=== PATIENT | male | born 2000 | race Two or more races ===

== ENCOUNTER 2024-07-12 10:37 | Emergency (ER) | payer MEDICAID, SELFPAY ==
[2024-07-12 10:54] VITALS: BP 113/79; PULSE 95; RESP 20; TEMP 37; O2SAT 95; BMI 23.5
--- NOTE | 2024-07-12 10:56 | EDNOTE_ITS ---
<Statement entered by Shameka Rm MD - 07/19/24 14:46> As co-signing physician, I was present and available for consult prn. I concur with the plan and care as documented by the midlevel provider. Upper Respiratory Inf. RME/HPI General Chief Complaint: Flu Like Symptoms Stated Complaint: SOB WITH COUGH Time Seen by Provider: 07/12/24 10:58 Source: patient Arrival date/time: 07/12/24 10:37 24-year-old male with no known medical history presents to the emergency room with a chief complaint of shortness of breath and cough x 3 days Mode of arrival: ambulatory Limitations: no limitations Related Data Previous Rx's ?Medication ?Instructions ?Recorded diphenhydramine HCl 25 mg capsule 25 mg PO Q8H PRN allergic symptoms 09/21/23 (Benadryl) #30 caps ibuprofen 600 mg tablet 600 mg PO Q6H #30 tabs 09/21/23 Allergies Allergy/AdvReac Type Severity Reaction Status Date / Time NKA* Allergy Uncoded 07/12/24 10:40 Review of Systems Review of Systems Systems Reviewed: All systems reviewed, normal except as documented Constitutional Constitutional: Reports system reviewed and no additional complaints, except as documented, Denies fatigue, Denies fever(s), Denies headache(s) and Denies weakness Eyes Eyes: Reports system reviewed and no additional complaints, except as documented, Denies blurry vision and Denies change in vision ENT Ears, Nose, Mouth, and Throat: Reports system reviewed and no additional complaints, except as documented, Denies otalgia, Denies headache(s), Denies nasal congestion, Denies throat swelling and Denies vertigo Cardiovascular Cardiovascular: Reports system reviewed and no additional complaints, except as documented, Denies chest pain, Reports dyspnea and Denies dyspnea on exertion Respiratory Respiratory: Reports system reviewed and no additional complaints, except as documented, Denies chest congestion, Reports cough, Reports dyspnea, Denies dyspnea on exertion and Reports wheezing Gastrointestinal Gastrointestinal: Reports system reviewed and no additional complaints, except as documented, Denies abdominal pain, Denies cramping, Denies nausea and Denies vomiting Genitourinary Genitourinary: Reports system reviewed and no additional complaints, except as documented, Denies dysuria and Denies hematuria Musculoskeletal Musculoskeletal: Reports system reviewed and no additional complaints, except as documented and Denies back pain Integumentary/Breasts Skin/Breast: Reports system reviewed and no additional complaints, except as documented and Denies wounds Neurologic Neurologic: Reports system reviewed and no additional complaints, except as documented, Denies confusion, Denies headache(s), Denies lack of coordination, Denies vertigo and Denies weakness Psychiatric Psychiatric: Reports system reviewed and no additional complaints, except as documented, Denies anxiety, Denies confusion, Denies depression, Denies paranoia, Denies suicidal ideation and Denies tactile hallucinations Endocrine Endocrine: Reports system reviewed and no additional complaints, except as documented and Denies fatigue Hematologic/Lymphatic Hematologic/Lymphatic: Reports system reviewed and no additional complaints, except as documented and Denies lymphadenopathy Allergic/Immunologic Allergic/Immunologic: Reports system reviewed and no additional complaints, except as documented, Denies throat swelling, Denies urticaria and Reports wheezing ED Exam General Limitations: Present no limitations Course Quality Measures none Orders Category Date Time Status XR chest 2V Stat Exams 07/12/24 10:56 Completed Albuterol/Ipratr Rt Stephy [Duoneb Rt Stephy] Med 07/12/24 10:56 Discontinued 3 ml INH X1 ONE Vital Signs Vital signs: Vital Signs Temperature 98.6 F 07/12/24 10:54 Pulse Rate 95 07/12/24 10:54 Respiratory Rate 20 07/12/24 10:54 Blood Pressure 113/79 07/12/24 10:54 Pulse Oximetry (%) 95 07/12/24 10:54 Oxygen Delivery Method Room Air 07/12/24 10:54 O2 saturation 95% within normal limits Upper Respiratory Infection MDM Narrative MDM Narrative:: 24-year-old male with no known medical history presents to the emergency room with a chief complaint of shortness of breath and cough x 3 days clinically the patient appears nontoxic and in no apparent distress. Physical examination shows mild wheezing to the lower lobes. Breathing treatment was completed and the patient states he is having significant improvement during reevaluation. Patient's x-ray is negative for pneumonia COVID and flu were both negative. Patient was discharged and educated to follow-up with primary care provider and return to the emergency room for any evidence of worsening signs or symptoms Patient data External records reviewed:: [facility] previous records Clinical information provided by:: patient Social determinants that could affect healthcare access:: none Patient has the following chronic illnesses:: Asthma How is presenting disease/condition affected by chronic disease/condition?: exacerbated by Evaluation data The following diagnostics were reviewed and interpreted by me:: lab results and radiology exam(s) Lab and/or radiology exams considered but not ordered:: Labs and radiology exams considered but not ordered Interpretation Summary: Chest x-ray-no acute pneumonic infiltrates Medications / Prescriptions Medications or Prescriptions considered but not ordered:: Meds given Medication administrations:: Medication Administration History Discontinued Medications Albuterol/Ipratropium (Albuterol/Ipratropium (Duoneb) Rt Stephy 3 Ml Nebu) 3 ml INH X1 ONE Stop: 07/12/24 10:57 Last Admin: 07/12/24 11:11 Dose: 3 ml Documented By: ZAN Meds given Consultations Consultation(s) initiated? (list below): No Diagnosis Upper Respiratory Differential Diagnosis: upper respiratory infection, viral infection, bronchitis and influenza Most likely diagnosis given after review of the tests above:: Upper respiratory infection Admission Indicated Admission indicated?: not indicated Admission Request Was there a request for admission?: No Disposition Plan Disposition Plan: Discharge Discharge Attestation Discharge Attestation: The patient and all family members were given an opportunity to ask questions and understood the discharge instructions. Discharge instructions specifically effects, indications for sooner follow up or return to the emergency department, and the expected course of current diagnosis. Patient condition: Stable Discharge Plan Plan Patient Disposition: HOME (Self Care) Disposition Comment: Stable Prescriptions/Referrals Prescriptions/Med Rec: No Action diphenhydramine HCl [Benadryl] 25 mg capsule 25 mg PO Q8H PRN (Reason: allergic symptoms) Qty: 30 0RF ibuprofen 600 mg tablet 600 mg PO Q6H Qty: 30 0RF Referrals: Chago Tapia MD [Primary Care Provider] - In 1 week Problem List Clinical Impression: Upper respiratory infection Patient/Caregiver Discharge Instructions Education Materials: ED URI, Viral, No Abx (Adult) Additional Instructions: Please follow-up with your primary care provider in the next 24 to 40 hours. For any evidence of worsening signs or symptoms please return to the emergency room immediately Print Language: Finnish Stand Alone Forms: Chelita Award Info., Patient Portal Info Letter PA/MAR Supervising Physician PA/MAR Supervising Physician: Dr. RM
--- NOTE | 2024-07-12 10:56 | XR_ITS ---
Examination: PA lateral chest 2 views TECHNIQUE: Upright PA lateral chest 2 views Exam date and time: July 12, 2024 1058 hours Comparison February 22, 2015 INDICATIONS: Shortness of breath wheezing beginning 5 days ago. FINDINGS: Minor accentuation of the perihilar markings No lobar pneumonia Normal heart size No pulmonary edema IMPRESSION: Mild bilateral perihilar inflammatory disease pattern
[2024-07-12 11:11] VITALS: PULSE 101; RESP 18; O2SAT 98
[2024-07-12] MEDS: ALBUTEROL/IPRATROPIUM (Duoneb) RT SOL 3 ML NEBU INH (11:11)
== END 2024-07-12 12:17 | disposition home or self-care (01) ==
PROVIDERS: Emergency Provider Emergency Medicine; PCP Family Medicine
DX: J06.9 Acute upper respiratory infection, unspecified (principal)
CPT/HCPCS: 71046; 94640; 99283; A9270

== ENCOUNTER 2024-12-04 11:29 | Emergency (ER) | payer MEDICAID, SELFPAY ==
[2024-12-04 11:45] VITALS: BP 116/72; PULSE 96; RESP 19; TEMP 37.1; O2SAT 97; BMI 23.1
--- NOTE | 2024-12-04 11:54 | XR_ITS ---
Examination: PA lateral chest 2 views TECHNIQUE: Upright PA lateral chest 2 views Date and time: November 26, 2024 1310 hours Comparison July 12, 2024 INDICATIONS: Coughing fever beginning one month ago. FINDINGS: Normal heart size. Lungs are clear. The osseous structures are intact IMPRESSION: No active disease
--- NOTE | 2024-12-04 11:55 | EDRME_ITS ---
Rapid Medical Screening Exam [facility] Arrival date/time: 12/04/24 11:29 24-year-old male with no known medical history presents to the emergency room with a chief complaint of difficulty breathing, chest pain x 1 week. Patient states he is also having night sweats and has had an episode of coughing up blood. I have greeted and performed a focused initial assessment of this patient. A comprehensive ED assessment and evaluation of the patient, analysis of all test results, and completion of the medical decision making process will be conducted by additional ED providers. Chief Complaint: Shortness of Breath/Dyspnea Time Seen by Provider: 12/04/24 11:46 Vital signs: Vital Signs Temperature 98.7 F 12/04/24 11:45 Pulse Rate 96 12/04/24 11:45 Respiratory Rate 19 12/04/24 11:45 Blood Pressure 116/72 12/04/24 11:45 Pulse Oximetry (%) 97 12/04/24 11:45 Oxygen Delivery Method Nasal Cannula 12/04/24 11:45 Oxygen Flow Rate 6 12/04/24 11:45 Vital signs reviewed by provider: Yes
[2024-12-04 12:22] LABS: Basophils % (Auto) 0 % (0-2.5); Eosinophils # (Auto) 1.5 Thou/mm3 (0.0-0.5); Eosinophils % (Auto) 8 % (0-10); Hematocrit 40.9 % (41.0-53.0); Hemoglobin 14.7 g/dL (13.5-16.0); Immature Granulocytes % (Auto) 0 % (0-0); Immature Granulocytes Auto 0.06 Thou/mm3 (0.00-0.00); Lymphocytes % (Auto) 11 % (10-50); Mean Corpuscular HGB Conc 35.9 g/dl (31.0-37.0); Mean Corpuscular Hemoglobin 29.8 pg (25.0-35.0); Mean Corpuscular Volume 83 fL (80-100); Monocytes # (Auto) 1.1 Thou/mm3 (0.0-0.8); Monocytes % (Auto) 6 % (0-12); Neutrophils # (Auto) 13.4 Thou/mm3 (1.8-7.7); Neutrophils % (Auto) 74 % (37-80); Nucleated Red Blood Cell % 0 /100 WBC (0); Platelet Count 494 Thou/mm3 (140-440); RDW Standard Deviation 37.4 fL (35.1-43.9); Red Blood Count 4.93 Miln/mm3 (4.50-5.90); White Blood Count 18.1 Thou/mm3 (3.8-10.6)
[2024-12-04] MEDS: ALBUTEROL/IPRATROPIUM (Duoneb) RT SOL 3 ML NEBU 6 ML INH (12:26)
[2024-12-04 12:29] VITALS: PULSE 79; RESP 20; O2SAT 100
[2024-12-04 12:38] LABS: Alanine Aminotransferase 20 U/L (10-49); Albumin, Serum 4.7 gm/dL (3.5-5.0); Albumin/Globulin Ratio 1.6 (1.2-2.2); Alkaline Phosphatase 142 U/L (46-116); Anion Gap 10 (7-16); Aspartate Amino Transferase 33 U/L (0-34); BUN/Creatinine Ratio 10 Ratio (12-20); Bilirubin,Total 0.4 mg/dL (0.3-1.2); Blood Urea Nitrogen 9 mg/dL (9-23); Calcium 9.1 mg/dL (8.3-10.6); Calcium (Corrected) 9.1 mg/dL (8.5-10.1); Carbon Dioxide 26.1 mMol/L (20.0-31.0); Chloride 105 mMol/L (98-107); Creatinine (Component) 0.9 mg/dL (0.6-1.3); Estimated Creatinine Clearance 106.9 mL/min (>60); Glucose 100 mg/dL (74-106); Magnesium 1.8 mg/dL (1.6-2.6); Osmolality,Calculated 279 (275-295); Sodium 141 mMol/L (136-145); Total Protein 7.7 gm/dL (5.7-8.2); eGFR > 60 See Note
[2024-12-04] MEDS: DEXAMETHASONE SOD PHOS INJ 10 MG/ML VIAL PO (13:02)
[2024-12-04 14:20] VITALS: PULSE 89; RESP 19; O2SAT 96
--- NOTE | 2024-12-04 16:42 | EDNOTE_ITS ---
<Statement entered by Shameka Rm MD - 12/05/24 06:08> As co-signing physician, I was present and available for consult prn. I concur with the plan and care as documented by the midlevel provider. ED SOB =RME/HPI General Chief Complaint: Shortness of Breath/Dyspnea Stated Complaint: ASTHMA ATTACK X PM, INHALER EMPTY, LOW O2 88%RA Time Seen by Provider: 12/04/24 11:46 Arrival date/time: 12/04/24 11:29 24-year-old male presents to the ED with a complaint of severe cough, difficulty breathing, pain in his chest, night sweats as well as an episode of hemoptysis. He has been ill for greater than 1 week. He is currently taking Augmentin twice daily as well as albuterol inhaler prescribed by his primary care physician. He has used an entire albuterol inhaler in the past 1 week due to the amount of coughing. 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 He has had runny nose, nasal congestion, postnasal drip. Mode of arrival: ambulatory Limitations: no limitations RME / HPI RME / HPI Narrative: 12/04/24 11:29 24-year-old male with no known medical history presents to the emergency room with a chief complaint of difficulty breathing, chest pain x 1 week. Patient states he is also having night sweats and has had an episode of coughing up blood. I have greeted and performed a focused initial assessment of this patient. A comprehensive ED assessment and evaluation of the patient, analysis of all test results, and completion of the medical decision making process will be conducted by additional ED providers. Related Data Previous Rx's ?Medication ?Instructions ?Recorded diphenhydramine HCl 25 mg capsule 25 mg PO Q8H PRN all ergic symptoms 09/21/23 (Benadryl) #30 caps ibuprofen 600 mg tablet 600 mg PO Q6H #30 tabs 09/20 albuterol sulfate 90 mcg/actuation 2 puff inhalation Q 4H PRN 12/04/24 aerosol inhaler shortness of breath or wheez ing #8.5 grams fluticasone propionate 50 2 spray intranasal QDAY 30 d ays 12/04/24 mcg/actuation nasal #30 mL spray,suspension (Flonase Allergy Relief) montelukast 10 mg tablet 10 mg PO QPM #30 tabs (Singulair) Allergies Allergy/AdvReac Type Severity Reaction Status Date / Time NKA* Allergy Uncoded 12/04/24 11:36 Review of Systems Review of Systems Systems Reviewed: All systems reviewed, normal except as documented Past Medical History Past Medical History CARDIAC: Negative Congestive Heart Failure RESPIRATORY: Negative Chronic Obstructive Pulmonary Disease (COPD) GENITOURINARY: Negative Renal Disease ENDOCRINE: Negative Diabetes Mellitus Type 1 or Diabetes Mellitus Type 2 Social History SMOKING STATUS: Never smoker SUBSTANCE USE: does not use ED Exam Narrative Physical exam: Alert and oriented 24-year-old male, no acute respiratory distress noted. Coarse breath sounds noted, regular rate and rhythm without murmurs. Nares with severe edema, pale and boggy bilaterally. TMs are without erythema. Pharynx without erythema or exudate. Neck is supple, no adenopathy. Moves all extremities well. General Limitations: Present no limitations Course Quality Measures none Orders Category Date Time Status Bedside COVID-19 Antigen Test NOW Care 12/04/24 11:54 Active Bedside Influenza A&B Antigen Test NOW Care 12/04/24 11:54 Active XR chest 2V Stat Exams 12/04/24 11:54 Completed CBC Stat Lab 12/04/24 12:08 Completed CMP [Comprehensive Metabolic Panel] Stat Lab 12/04/24 12:08 Completed Cocci Serology IgM with reflex to IgG [Cocci Serology, Lab 12/04/24 12:08 Received Unk History] Stat Mag [Magnesium] Stat Lab 12/04/24 12:08 Completed Albuterol/Ipratr Rt Stephy [Duoneb Rt Stephy] Med 12/04/24 11:54 Discontinued 10 ml INH X1 ONE Albuterol/Ipratr Rt Stephy [Duoneb Rt Stephy] Med 12/04/24 12:23 Discontinued 6 ml INH X1 ONE Dexamethasone Inj [Decadron Inj] Med 12/04/24 11:54 Discontinued 10 mg PO X1 ONE Vital Signs Vital signs: Vital Signs Temperature 98.7 F 12/04/24 11:45 Pulse Rate 96 12/04/24 11:45 Respiratory Rate 19 12/04/24 11:45 Blood Pressure 116/72 12/04/24 11:45 Pulse Oximetry (%) 97 12/04/24 11:45 Oxygen Delivery Method Nasal Cannula 12/04/24 11:45 Oxygen Flow Rate 6 12/04/24 11:45 Shortness of Breath / Dyspnea MDM Narrative MDM Narrative:: Patient was initially seen in the [facility]. Labs were drawn and chest x-ray ordered as well as cocci serology. He was given DuoNeb x 2 as well as Decadron 10 mg p.o. He will be discharged home in stable and improved condition with prescriptions for albuterol inhaler, Flonase nasal spray, Singulair in addition to his other regular medications including Zyrtec. Patient data External records reviewed:: None Clinical information provided by:: patient Social determinants that could affect healthcare access:: none Patient has the following chronic illnesses:: Possible asthma How is presenting disease/condition affected by chronic disease/condition?: exacerbated by Evaluation data The following diagnostics were reviewed and interpreted by me:: lab results and radiology exam(s) Lab and/or radiology exams considered but not ordered:: N/A Interpretation Summary: COVID and influenza A/B swabs are negative. xr cHEST: FINDINGS: Normal heart size. Lungs are clear. The osseous structures are intact IMPRESSION: No active disease Medications / Prescriptions Medications or Prescriptions considered but not ordered:: N/A Medication administrations:: Medication Administration History Discontinued Medications Albuterol/Ipratropium (Albuterol/Ipratropium (Duoneb) Rt Stephy 3 Ml Nebu) 10 ml INH X1 ONE Stop: 12/04/24 11:55 Last Admin: 12/04/24 12:45 Dose: Not Given Documented By: [facility] Non-Admin Reason: Discontinued Albuterol/Ipratropium (Albuterol/Ipratropium (Duoneb) Rt Stephy 3 Ml Nebu) 6 ml INH X1 ONE Stop: 12/04/24 12:24 Last Admin: 12/04/24 12:26 Dose: 6 ml Documented By: [facility] Dexamethasone Sodium Phosphate (Dexamethasone Sod Phos Inj 10 Mg/Ml Vial) 10 mg PO X1 ONE Stop: 12/04/24 11:55 Last Admin: 12/04/24 13:02 Dose: 10 mg Documented By: DuoNeb 10 mL and DuoNeb 6 mL as well as dexamethasone 10 mg p.o. Consultations Consultation(s) initiated? (list below): No Diagnosis Shortness of Breath Differential Diagnosis: acute exacerbation of chronic obstructive airways disease, community acquired pneumonia, asthma with exacerbation and other (Asthmatic bronchitis, coccidiomycosis, tuberculosis) Most likely diagnosis given after review of the tests above:: Asthmatic bronchitis Admission Indicated Admission indicated?: not indicated Explain why admission is indicated or not indicated:: Patient is stable for discharge Admission Request Was there a request for admission?: No Disposition Plan Disposition Plan: Discharge Discharge Attestation Discharge Attestation: The patient and all family members were given an opportunity to ask questions and understood the discharge instructions. Discharge instructions specifically effects, indications for sooner follow up or return to the emergency department, and the expected course of current diagnosis. Patient condition: Stable Discharge Plan Plan Patient Disposition: HOME (Self Care) Discharge Disposition comment: Stable and improved Prescriptions/Referrals Prescriptions/Med Rec: New montelukast [Singulair] 10 mg tablet 10 mg PO QPM Qty: 30 0RF albuterol sulfate 90 mcg/actuation HFA aerosol inhaler 2 puff inhalation Q4H PRN (Reason: shortness of breath or wheezing) Qty: 8.5 0RF fluticasone propionate [Flonase Allergy Relief] 50 mcg/actuation spray,suspension 2 spray intranasal QDAY 30 Days Qty: 30 0RF Rx Instructions: administer into each nostril No Action diphenhydramine HCl [Benadryl] 25 mg capsule 25 mg PO Q8H PRN (Reason: allergic symptoms) Qty: 30 0RF ibuprofen 600 mg tablet 600 mg PO Q6H Qty: 30 0RF Referrals: Chago Tapia MD [Primary Care Provider] - In 1 week Problem List Clinical Impression: Asthma with exacerbation, Chronic cough, Chronic rhinosinusitis with multiple nasal polyps Patient/Caregiver Discharge Instructions Education Materials: Understanding Nasal Polyps, ED Asthma, Acute (Adult), ED Cough Chronic Uncertain Cause Adult, ED Inhaler Use Additional Instructions: Complete the course of antibiotics as previously prescribed. Continue taking Zyrtec as well as the new medications including Singulair, Flonase nasal spray, and albuterol inhaler. Due to your diagnoses, you are an excellent candidate for a new medication called Dupixent. Please discuss this medication with your primary care physician. A lab drawn today for valley fever will not be resulted for at least another 48 hours. Check with your primary care physician on Monday for results. Follow-up with your primary care physician in 24 to 48 hours. Return to the ED for any new or worsening symptoms. Print Language: Northern Irish Stand Alone Forms: Chelita Award Info., Patient Portal Info Letter PA/BOBBIN CLEANER Supervising Physician PA/BOBBIN CLEANER Supervising Physician: Dr. Rm
[2024-12-05 11:57] LABS: Cocci Serology, IgM Negative (Negative)
[2024-12-06 11:34] LABS: Cocci Serology, IgG Negative (Negative)
== END 2024-12-04 17:24 | disposition home or self-care (01) ==
PROVIDERS: Nurse Practitioner Family; Emergency Provider Emergency Medicine; PCP Family Medicine
DX: J45.901 Unspecified asthma with (acute) exacerbation (principal); J32.9 Chronic sinusitis, unspecified; J33.9 Nasal polyp, unspecified
CPT/HCPCS: 36415; 71046; 80053; 83735; 85025; 86331; 86480; 86635; 94640; 99283; A9270; J1100